=== PATIENT | male | born 1960 | race Caucasian/White ===

== ENCOUNTER → 2024-11-09 10:43 | Outpatient (BNVA) | payer MEDICARE, SELFPAY | PROVIDERS: PCP Family Medicine; Visit Provider Internal Medicine | DX: R79.89 Other specified abnormal findings of blood chemistry (principal); R53.83 Other fatigue | CPT/HCPCS: 99204 ==

== ENCOUNTER 2024-11-24 07:32 | Oncology outpatient (recurring) (ONCR) | payer MEDICARE, SELFPAY ==
[2024-11-24] MEDS: cosyntropin 0.25 mg SDV IVP (08:21)
[2024-11-24 08:27] VITALS: BP 119/76; PULSE 52; RESP 17; TEMP 36.9; O2SAT 96
[2024-11-24 09:01] LABS: Cosyntropin Baseline 2.37 mcg/dL
[2024-11-24 09:32] VITALS: BP 129/81; PULSE 52; RESP 17; TEMP 36.6; O2SAT 96
[2024-11-24 09:44] LABS: Cosyntropin 30 Minute 21.51 mcg/dL
[2024-11-24 10:04] LABS: Cosyntropin 1 Hour 24.33 mcg/dL
== END 2024-12-10 23:59 | disposition home or self-care (01) ==
PROVIDERS: PCP Family Medicine; Visit Provider Internal Medicine
DX: R79.89 Other specified abnormal findings of blood chemistry (principal); Z79.899 Other long term (current) drug therapy
CPT/HCPCS: 36415; 82533; 96374; J0834